=== PATIENT | female | born 1950 | race Two or more races ===

== ENCOUNTER 2018-09-23 15:28 | Inpatient (IN) | payer OTHER ==
[~2018-09-23] VITALS: Ht 165.1 cm; Wt 61.2 kg
[~2018-09-23 15:28] MED LIST: AMLODIPINE BESYL5 MG; ASPIR 8181 MG; CALCIUM + VIT1 EACH; FOSAMAX70 MG; FUROSEMIDE20 MG; HUMULIN N100 U/ML; HUMULIN N100 UNIT/2; LASIX20 MG PO; LISINOPRIL2.5 MG; ZESTRIL2.5 MG PO
== END 2018-09-29 16:25 | disposition home or self-care (01) | DRG 638 ==
LOC: ER 15:28 → ICU-2 09-24 00:10 → SEC-K 09-26 14:19 → MEDJ 09-26 14:43 → SURG 09-26 15:47
PROVIDERS: ADMIT Internal Medicine
PROC: BW28ZZZ Computerized Tomography (CT Scan) of Head (ICD-10-PCS; principal; 2018-09-24)
PROC: 4A033R1 Measurement of Arterial Saturation, Peripheral, Percutaneous Approach (ICD-10-PCS; 2018-09-24)
PROC: BT4JZZZ Ultrasonography of Kidneys and Bladder (ICD-10-PCS; 2018-09-24)
PROC: 3E0F7GC Introduction of Other Therapeutic Substance into Respiratory Tract, Via Natural or Artificial Opening (ICD-10-PCS; 2018-09-24)
PROC: B030ZZZ Magnetic Resonance Imaging (MRI) of Brain (ICD-10-PCS; 2018-09-25)
DX: E11.10 Type 2 diabetes mellitus with ketoacidosis without coma (principal); N17.9 Acute kidney failure, unspecified; Z79.4 Long term (current) use of insulin; R41.82 Altered mental status, unspecified; G35 Multiple sclerosis; E11.22 Type 2 diabetes mellitus with diabetic chronic kidney disease; E11.65 Type 2 diabetes mellitus with hyperglycemia; I12.9 Hypertensive chronic kidney disease with stage 1 through stage 4 chronic kidney disease, or unspecified chronic kidney disease; N18.2 Chronic kidney disease, stage 2 (mild); E11.00 Type 2 diabetes mellitus with hyperosmolarity without nonketotic hyperglycemic-hyperosmolar coma (NKHHC)
CPT/HCPCS: 70551

== ENCOUNTER 2020-06-27 15:49 | Emergency (ER) | payer OTHER ==
[~2020-06-27] VITALS: Ht 157.5 cm; Wt 59.0 kg
== END 2020-06-28 11:53 | disposition home or self-care (01) ==
LOC: ER 15:49
DX: E11.43 Type 2 diabetes mellitus with diabetic autonomic (poly)neuropathy (principal); K31.84 Gastroparesis; G35 Multiple sclerosis; E11.22 Type 2 diabetes mellitus with diabetic chronic kidney disease; I12.0 Hypertensive chronic kidney disease with stage 5 chronic kidney disease or end stage renal disease; N18.5 Chronic kidney disease, stage 5; N17.8 Other acute kidney failure; E11.65 Type 2 diabetes mellitus with hyperglycemia; Z79.4 Long term (current) use of insulin; N39.0 Urinary tract infection, site not specified; B96.29 Other Escherichia coli [E. coli] as the cause of diseases classified elsewhere